=== PATIENT | female | born 1990 | race Caucasian/White ===

== ENCOUNTER 2018-08-04 00:43 | Emergency (ER) | payer BC, OTHER ==
[~2018-08-04] VITALS: Ht 158.8 cm; Wt 49.1 kg
[2018-08-04 00:46] VITALS: Ht 158.8 cm; Wt 49.1 kg
[2018-08-04] MEDS ORDERED: KETOROLAC 30 MG INJ IV STA (01:52)
[2018-08-04] MEDS ORDERED: ACETAMINOPHEN 500 MG TAB PO STA (01:52)
[2018-08-04] MEDS ORDERED: DIPHENHYDRAMINE 50 MG INJ IV STA (01:52)
[2018-08-04] MEDS ORDERED: SOD CHLORIDE 0.9% 1,000 ML IV STA (01:52)
[2018-08-04] MEDS ORDERED: PROCHLORPERAZINE 10 MG INJ IV STA (01:52)
--- NOTE | 2018-08-04 02:26 | ERD ---
ER Documentation Chief Complaint Chief Complaint headache since HPI 28-year-old female is here complaining of headache and fever since . She is had nausea but no vomiting. No cough. No abdominal pain. No dysuria hematuria frequency. She took Motrin earlier today but only once. No diarrhea. No ear pain or sore throat. She does have a history of headache she states. ROS All systems reviewed and are negative except as per history of present illness. Medications Home Meds Active Scripts Ondansetron (Ondansetron Odt) 4 Mg Tab.rapdis, 4 MG PO Q6H PRN for NAUSEA AND/OR VOMITING, #10 TAB Prov:STACEY LOVELL PA-C 08/04/18 Acetaminophen/Aspirin/Caffeine* (Excedrin*) 1 Tab Tab, 1 TAB PO Q6, #30 TAB Prov:STACEY LOVELL PA-C 08/04/18 Allergies Allergies: Coded Allergies: No Known Allergy (Unverified , 08/04/18) PMhx/Soc Medical and Surgical Hx: pt denies Surgical Hx Hx Miscellaneous Medical Probl: Yes (anemia) Hx Alcohol Use: No Hx Substance Use: No Hx Tobacco Use: No Smoking Status: Never smoker FmHx Family History: No diabetes Physical Exam Vitals Physical Exam INITIAL VITAL SIGNS: Reviewed by me GENERAL: Awake, alert and oriented x 4, well appearing, nontoxic, speaking in full sentences. No acute distress HEAD: Atraumatic NECK: Supple. No masses. Full range of motion. No meningismus. No midline tenderness. EYES: EOMI. PERRL. EAR: No tenderness over the mastoids bilaterally. No exudates in the canals. TMs nonerythematous. NOSE: Normal nose. THROAT: No tonilar erythema or edema. No exudates. Uvula midline. No kissing tonsils. RESPIRATORY: Clear to auscultation bilaterally. Symmetric chest wall rise. No wheezing or rales. No accessory muscle use. CV: Regular rate and rhythm. No murmurs, rubs, or gallops. ABDOMEN: Soft, non-distended. Nontender. Negative Zebulon. Negative McBurneys point tenderness. No CVA tenderness bilaterally. No guarding. No rebound. Neuro: M/S: Alert and oriented Face: EOMI, face and pharynx with normal sensation and function Motor: Normal strength throughout Sensation: Normal sensation throughout Speech: Normal Cerebel: Normal coordination Normal gait Normal finger to nose Results 24 hrs Laboratory Tests Test 08/04/18 02:10 POC Beta HCG, Qualitative NEGATIVE Current Medications Medications Dose Sig/James Start Time Status Last (Trade) Ordered Route PRN Stop Time Admin Dose Reason Admin 1,000 mg ONCE STAT 08/04/18 DC 08/04/18 Acetaminophen PO 01:52 02:07 (Tylenol 08/04/18 01:54 Tab) Sodium 1,000 ml @ Q1H STAT 08/04/18 DC 08/04/18 Chloride 1,000 mls/hr IV 01:52 02:07 08/04/18 02:51 10 mg ONCE STAT 08/04/18 DC 08/04/18 Prochlorperaz IV 01:52 02:07 ine 08/04/18 01:54 (Compazine Inj) Ketorolac 30 mg ONCE STAT 08/04/18 DC 08/04/18 Tromethamine IV 01:52 02:13 (Toradol) 08/04/18 01:54 25 mg ONCE STAT 08/04/18 DC 08/04/18 Diphenhydrami IV 01:52 02:07 ne HCl 08/04/18 01:54 (Benadryl) Procedures/MDM The differential diagnosis includes but is not limited to subdural hematoma, epidural hematoma, intracerebral hemorrhage, occult trauma, CVA, meningitis, encephalitis, hypertension, tension, migraine, cluster, cervical spine disease, and others. Patient has a fever and headache. Neurological exam is normal. Low suspicion for meningitis. Likely viral illness. Patient given Tylenol IV fluids Compazine Benadryl and Toradol with improvement. Patient counseled regarding my diagnostic impression and care plan. Prior to discharge all questions answered. Pt agrees with treatment plan and understands strict return precautions. Pt is instructed to follow up with primary care provider within 24- 48 hours. Precautionary instructions provided including instructions to return to the ER if not improving or for any worsening or changing symptoms or concerns. Departure Diagnosis: Primary Impression: Headache Additional Impression: Febrile illness Condition: Stable STACEY LOVELL PA-C Aug 04, 2018 02:26
[2018-08-04] MEDS ORDERED: ONDA4TAB14 PO (02:34)
[2018-08-04] MEDS ORDERED: EXCED PO (02:34)
[2018-08-04 03:28] VITALS: BP 116/76; PULSE 80; RESP 18
== END 2018-08-04 03:27 | disposition home or self-care (01) ==
LOC: FTE 00:43
DX: R51 Headache (principal); R50.9 Fever, unspecified; R11.0 Nausea
CPT/HCPCS: 81025; 96374; 96375; 99284; J0780; J1200; J1885; J7030